=== PATIENT | male | born 1975 | race Caucasian/White ===

== ENCOUNTER 2017-06-13 07:17 | Day surgery (SDC) | payer OTHER ==
[~2017-06-13] VITALS: Ht 198.1 cm; Wt 89.6 kg
[~2017-06-13 07:17] MED LIST: CRUTCH3 XX; CYCL10 PO; Naprosyn500 MG PO; OXYACE5T PO
== END 2017-06-13 12:45 | disposition home or self-care (01) ==
LOC: ORSCSDS 07:17
PROVIDERS: Orthopaedic Surgery
PROC: 0SQC4ZZ Repair Right Knee Joint, Percutaneous Endoscopic Approach (ICD-10-PCS; principal; 2017-06-13 08:45)
PROC: 0SBC4ZZ Excision of Right Knee Joint, Percutaneous Endoscopic Approach (ICD-10-PCS; principal; 2017-06-13 08:45)
DX: S83.231A Complex tear of medial meniscus, current injury, right knee, initial encounter (principal); F17.210 Nicotine dependence, cigarettes, uncomplicated
CPT/HCPCS: C1713; J0171; J0690; J1100; J2250; J2405; J3010; J7120

== ENCOUNTER 2021-08-31 07:04 | Emergency (ER) | payer SELFPAY ==
[~2021-08-31] VITALS: Ht 200.7 cm; Wt 95.2 kg
[2021-08-31] MEDS ORDERED: LIDO700A20 TOP (09:18)
[2021-08-31] MEDS ORDERED: METPRE4DP PO (09:18)
[2021-08-31] MEDS ORDERED: IBUP600 PO (09:18)
[2021-08-31] MEDS ORDERED: Robaxin750 MG PO (09:18)
== END 2021-08-31 09:27 | disposition home or self-care (01) ==
LOC: ER 07:04
DX: S39.012A Strain of muscle, fascia and tendon of lower back, initial encounter (principal); X58.XXXA Exposure to other specified factors, initial encounter; M54.42 Lumbago with sciatica, left side; F17.210 Nicotine dependence, cigarettes, uncomplicated
CPT/HCPCS: 96372; 99283-25; A9270; J1885